=== PATIENT | male | born 1970 | race American Indian/Alaskan Native ===

== ENCOUNTER 2019-01-10 21:12 | Emergency (ER) | payer OTHER ==
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
[2019-01-11 00:46] VITALS: BP 117/87
== END 2019-01-11 00:25 | disposition home or self-care (01) ==
LOC: ED 21:12
DX: S16.1XXA Strain of muscle, fascia and tendon at neck level, initial encounter (principal); Z88.0 Allergy status to penicillin; V49.49XA Driver injured in collision with other motor vehicles in traffic accident, initial encounter; Y93.89 Activity, other specified; Y92.410 Unspecified street and highway as the place of occurrence of the external cause; Y99.8 Other external cause status